=== PATIENT | female | born 1940 | race Caucasian/White ===

== ENCOUNTER 2017-07-31 09:32 | Emergency (ER) | payer MEDICARE, BC ==
[2017-07-31 09:56] VITALS: BP 140/65
--- NOTE | 2017-07-31 10:25 | RAD ---
INDICATION: Atraumatic right foot pain COMPARISON: None TECHNIQUE: AP, lateral, and oblique views were obtained. FINDINGS: There are no acute bony findings. There is minor osteoarthritic change of the midfoot. There is an arcuate configuration the tarsal navicular. There are heel spurs. The soft tissues are normal IMPRESSION: MIDFOOT OSTEOARTHRITIS. HEEL SPURS. NO ACUTE FINDINGS
--- NOTE | 2017-08-08 15:20 | UC ---
Fátima Lugo Thomas, scribed for Pamella Rae DO on 07/31/17 at 1014 . Lower Extremity/Ankle HPI - HPI Summary HPI Summary: The patient is a 76 year old female complaining of right foot pain that began four days ago and has progressively worsened. She describes the pain as throbbing. She denies radiation of pain or calf pain. The pain is worsened with touch and weight bearing. There is no known injury. The pain is rated 7/10. The patient reports some swelling in the area of pain. She denies any fever, sweats , chills, nausea, shortness of breath, chest pain, numbness, weakness, tingling , or any other symptoms. - History of Current Complaint Chief Complaint: UCLowerExtremity Stated Complaint: FOOT PAIN Time Seen by Provider: 07/31/17 10:05 Hx Obtained From: Patient Onset/Duration: Lasting Days - 4, Still Present Severity Currently: Moderate Pain Intensity: 7 Pain Scale Used: 0-10 Numeric Aggravating Factor(s): Standing, Ambulation Alleviating Factor(s): Nothing - Allergies/Home Medications Allergies/Adverse Reactions: Allergies Allergy/AdvReac Type Severity Reaction Status Date / Time benzalkonium chloride Allergy Intermediate BLURRED Verified 07/31/17 09:59 [From Travatan (with benzalkonium)] brimonidine Allergy Intermediate Rash Verified 07/31/17 09:59 travoprost Allergy Intermediate BLURRED Verified 07/31/17 09:59 [From Travatan (with benzalkonium)] ENVIRONMENTAL ALLERGIES Allergy SINUS Uncoded 07/31/17 09:59 PROBLEMS - NONE IN A WHILE PMH/Surg Hx/FS Hx/Imm Hx Cardiovascular History: Hypertension Respiratory History: Asthma - Surgical History Surgical History: Yes Surgery Procedure, Year, and Place: 1994 APPENDECTOMY, [facility]. 1959 SURGERY FOR SCALENUS ANTICUS COMPRESSION OF RIGHT VERTICAL ARTERY IN THE NECK, [facility] 1966 DILATION & CURETTAGE, [facility] [place]. 1991 SINUS SURGERY, [facility] [place]. 2003 LAPAROSCOPIC CHOLECYSTECTOMY, [facility] [place]. 2004 LAPAROSCOPIC CORA EN Y GASTRIC BYPASS, [facility] [place]. 2015 LASIK SURGERY, [facility] - Family History Known Family History: Positive: Diabetes, Other - Cataracts - Social History Alcohol Use: None Substance Use Type: None Smoking Status (MU): Never Smoked Tobacco Review of Systems Constitutional: Negative - fever Musculoskeletal: Other: - Foot pain, RLE swelling Is Patient Immunocompromised?: No All Other Systems Reviewed And Are Negative: Yes Physical Exam - Summary Physical Exam Summary: Appearance: Well-Appearing, No Pain Distress, Well-Nourished Eyes: conjunctiva clear, no discharge ENT: Hearing grossly normal, no muffled/hoarse voice. Neck: Normal, Supple Respiratory/Lung Sounds: Lungs clear, Normal breath sounds, No respiratory distress, No accessory muscle use Cardiovascular: RRR, No murmur Extremities: She has asymmetrical swelling in her lower extremities. Her right lower leg is swollen. Neurological: Alert, muscle tone normal Psychiatric:Normal, age appropriate behavior Skin: Normal, Warm, Dry, Normal color Triage Information Reviewed: Yes Vital Signs: Initial Vital Signs Temp 98.8 F 07/31/17 09:51 Pulse 82 07/31/17 09:51 Resp 18 07/31/17 09:51 BP 140/65 07/31/17 09:51 Pulse Ox 99 07/31/17 09:51 Vital Signs Reviewed: Yes Diagnostics - Radiology Foot XR Xray Interpretation: No Acute Changes - MIDFOOT OSTEOARTHRITIS. HEEL SPURS. NO ACUTE FINDINGS. Dr. Rae has reviewed this report. Radiology Interpretation Completed By: Radiologist Lower Extremity Course/Dx - Course Course Of Treatment: The patient is a 77 year old female presenting with right foot pain and right lower extremity swelling. The patient was discharged and instructed to immediately present to the emergency department for further workup. - Differential Dx/Diagnosis Provider Diagnoses: r/o dvt Discharge - Discharge Plan Condition: Stable Disposition: HOME Patient Education Materials: Deep Vein Thrombosis (ED), Leg Edema (ED) Referrals: Nazanin Davis MD [Primary Care Provider] - Additional Instructions: YOUR RIGHT LOWER LEG IS VERY SWOLLEN COMPARED TO THE LEFT. THIS MAKES US CONCERNED FOR A DEEP VEIN THROMBOSIS(DVT). SO WE ARE RECOMMENDING THAT YOU GO TO THE ED IMMEDIATELY FOR FURTHER EVALUATION. A DVT CAN COME LOOSE AND GET THROWN INTO YOUR LUNGS, BECOMING A PULMONARY EMBOLISM. THE RISKS ASSOCIATED WITH THIS CONDITION ARE RESPIRATORY DISTRESS, RESPIRATORY ARREST AND . The documentation as recorded by the Fátima paulino Thomas accurately reflects the service I personally performed and the decisions made by , Pamella Rae DO.
== END 2017-07-31 10:49 | disposition home or self-care (01) ==
LOC: UCEAST 09:32
DX: M79.671 Pain in right foot (principal); R22.41 Localized swelling, mass and lump, right lower limb; I10 Essential (primary) hypertension; J45.909 Unspecified asthma, uncomplicated; Z88.8 Allergy status to other drugs, medicaments and biological substances
CPT/HCPCS: 99211; G0463

== ENCOUNTER 2017-07-31 11:10 | Emergency (ER) | payer MEDICARE, BC ==
--- NOTE | 2017-07-31 11:23 | ED ---
Lower Extremity - HPI Summary HPI Summary: 77 female presents to ED with complaints of right foot pain and swelling for the past 4 days, sent of from [facility] to rule out DVT. Patient states she took a tylenol a few days ago however did not have any relief. No known trauma or injury. Had an xray at urgent care which showed osteoarthritis and bone spurs. No redness, bruising, or skin discoloration. No warmth or fever/chills. No other complaints. No significant PMHx. Was also wondering about gout. - History of Current Complaint Chief Complaint: EDExtremityLower Stated Complaint: RT LEG SWELLING-CC TRANSFER Time Seen by Provider: 07/31/17 11:21 Hx Obtained From: Patient Mechanism Of Injury: Unknown Onset of Pain: Days Onset/Duration: Days Severity Initially: Moderate Severity Currently: Moderate Pain Intensity: 7 Pain Scale Used: 0-10 Numeric Timing: Constant Location: Is Discrete @ - right medial foot Character Of Pain: Aching Associated Signs And Symptoms: Positive: Swelling Aggravating Factor(s): Standing, Ambulation, Other - touch Alleviating Factor(s): Rest, Nothing Able to Bear Weight: Yes Feet (Multiple View): 1 - pain - Risk Factors Gout Risk Factors: Age Over 40 - Allergies/Home Medications Allergies/Adverse Reactions: Allergies Allergy/AdvReac Type Severity Reaction Status Date / Time benzalkonium chloride Allergy Intermediate BLURRED Verified 07/31/17 09:59 [From Travatan (with benzalkonium)] brimonidine Allergy Intermediate Rash Verified 07/31/17 09:59 travoprost Allergy Intermediate BLURRED Verified 07/31/17 09:59 [From Travatan (with benzalkonium)] ENVIRONMENTAL ALLERGIES Allergy SINUS Uncoded 07/31/17 09:59 PROBLEMS - NONE IN A WHILE PMH/Surg Hx/FS Hx/Imm Hx Endocrine/Hematology History: Denies: Hx Diabetes, Hx Thyroid Disease Cardiovascular History: Reports: Hx Hypertension - HX OF NO MEDS Respiratory History: Reports: Hx Asthma - NO PROBLEMS NOW, NO INHALERS SINCE 1994, Hx Sleep Apnea - NO MACHINES Denies: Hx Chronic Obstructive Pulmonary Disease (COPD) GI History: Denies: Hx Ulcer Musculoskeletal History: Reports: Hx Arthritis - OSTEOARTHRITIS, KNEES, HIPS Sensory History: Reports: Hx Cataracts - BILATERAL, Hx Contacts or Glasses - GLASSES, Hx Glaucoma - BILATERAL, Hx Hearing Aid - BILATERAL Opthamlomology History: Reports: Hx Cataracts - BILATERAL, Hx Contacts or Glasses - GLASSES, Hx Glaucoma - BILATERAL Neurological History: Reports: Other Neuro Impairments/Disorders - 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 1959 SURGERY FOR SCALENUS ANTICUS COMPRESSION OF RIGHT VERTICAL ARTERY IN THE NECK, [facility]. 1966 DILATION & CURETTAGE, [facility] [place]. 1991 SINUS SURGERY, [facility] [place]. 2002 LAPAROSCOPIC CHOLECYSTECTOMY, [facility] [place]. 2003 LAPAROSCOPIC CORA EN Y GASTRIC BYPASS, [facility] [place]. 2015 LASIK SURGERY, [facility] Hx Anesthesia Reactions: No - Immunization History Immunizations Up to Date: Yes Infectious Disease History: No Infectious Disease History: Denies: Hx Human Immunodeficiency Virus (HIV), Traveled Outside the [place] in Last 30 Days - Family History Known Family History: Positive: None - Social History Alcohol Use: None Substance Use Type: Reports: None Smoking Status (MU): Never Smoked Tobacco Review of Systems Constitutional: Negative Cardiovascular: Negative Respiratory: Negative Positive: Arthralgia, Myalgia, Edema - right foot/lower leg Skin: Negative All Other Systems Reviewed And Are Negative: Yes Physical Exam Triage Information Reviewed: Yes Vital Signs On Initial Exam: Initial Vitals Temp Pulse Resp BP Pulse Ox 98.3 F 71 14 171/76 98 07/31/17 11:12 07/31/17 11:12 07/31/17 11:12 07/31/17 11:12 07/31/17 11:12 Vital Signs Reviewed: Yes Appearance: Positive: Well-Appearing, Well-Nourished, Pain Distress - mderate with touch or weight bearing on right foot Skin: Positive: Warm, Skin Color Reflects Adequate Perfusion, Dry. Negative: Cold, Numb, Cyanosis @, Pale, Erythema @ - very minimal if any on medial right foot however, patient has been holding it, not warm and no cellulitic like Neck: Positive: Supple Respiratory/Lung Sounds: Positive: Clear to Auscultation, Breath Sounds Present. Negative: Rales, Rhonchi, Wheezes Cardiovascular: Positive: Normal, RRR, Pulses are Symmetrical in both Upper and Lower Extremities - 1+ pedal bilateral, Leg Edema Right - lower ankle/foot, non pitting. Negative: Murmur, Rub Musculoskeletal: Positive: Normal, Strength/ROM Intact, Pain @ - TTP medial right foot with some edema, non pitting, Edema Right - non pitting lower leg right ankle/foot, Other - no crepitus step off or obvious deformity/trauma. Negative: Limited @, Interruption @, Abnormal @ Neurological: Positive: Normal, Sensory/Motor Intact, Alert, Oriented to Person Place, Time, NV Bundle Intact Distally, Normal Gait - favoring left side due to pain Diagnostics - Vital Signs Vital Signs Temp Pulse Resp BP Pulse Ox 07/31/17 11:12 98.3 F 71 14 171/76 98 - Laboratory Lab Statement: Any lab studies that have been ordered have been reviewed, and results considered in the medical decision making process. Re-Evaluation - Re-Evaluation First Eval Re-Evaluation Time: 12:35 Change: Unchanged - updated on results wanted to take aleve at home Lower Extremity Course/Dx - Course Course Of Treatment: xray obtained at [facility] prior to arrival and no abnormalities other than bone spur and osteoarthritis. US obtained and negative for DVT did show tabor's cyst. Due to physical exam findings/complaints possible arthritis flar, GOUT, or bone spur pain. Recommended orthotic shoes and Aleve for the next 5-7 days with food and RICE. Aware of worsening signs and symptoms to return for. Normal vitals and PE besides TTP on medial foot. No other complaints or concerns. Follow up with PCP for recheck. wanted to take aleve at home, therefore none given in ED, however instructed on use. - Diagnoses Differential Diagnosis/HQI/PQRI: Positive: Arthritis, Contusion, Gout, Infection , Sprain, Strain, Tendonitis, Other - bone spur Provider Diagnoses: Foot pain, right, Foot swelling, Osteoarthritis Discharge - Discharge Plan Condition: Stable Disposition: HOME Patient Education Materials: Osteoarthritis (ED), Gout (ED), Arthralgia (ED) Referrals: Nazanin Davis MD [Primary Care Provider] - Additional Instructions: Rest, ice and elevate. Take aleve as discussed (2 pills at first then one pill every 12 hours with food for the first 3 days, then one a day until symptoms improve). Recommend orthotic footwear. Follow up with PCP for re-check. Any new or worsening symptoms such as color change, fever, increased pain, chest pain, increased swelling, please return to ED or seek medical attention promptly.
--- NOTE | 2017-07-31 12:11 | RAD ---
INDICATION: Pain and swelling. COMPARISON: None TECHNIQUE: Duplex interrogation of the Lowerextremity was performed. FINDINGS: Deep veins: The common femoral, great saphenous, profunda femoris, proximal, mid, and distal deep femoral, popliteal, posterior tibial, and peroneal veins are patent. There is normal compressibility, augmentation, and phasic flow. Superficial veins: There are no findings of superficial thrombophlebitis. Popliteal fossa:There is a 7.2 x 3.4 x 2.2 cm popliteal cyst. Soft tissues:There are no soft tissue abnormalities. IMPRESSION: POPLITEAL CYST. NO EVIDENCE OF DEEP VENOUS THROMBOSIS
[2017-07-31 13:10] VITALS: BP 00/00
== END 2017-07-31 13:02 | disposition home or self-care (01) ==
LOC: ED 11:10
DX: M79.671 Pain in right foot (principal); M79.89 Other specified soft tissue disorders; M19.90 Unspecified osteoarthritis, unspecified site
CPT/HCPCS: 99283

== ENCOUNTER 2018-08-11 16:35 | Emergency (ER) | payer MEDICARE, BC ==
[2018-08-11 17:06] VITALS: BP 184/85
--- NOTE | 2018-08-11 17:57 | UC ---
General HPI - HPI Summary HPI Summary: Pleasant 78 yo lady presents with , c/o R arm / wrist / hand pain s/p fall earlier today. Mistook step on short step ladder, and fell down onto hard metal object. No loc. No neck pain. No sob / cp / abd pain. No B/b issues reported. No head pain, vis / aud issues. No shoulder, back, hip pain. No abd pain. - History of Current Complaint Chief Complaint: UCUpperExtremity Stated Complaint: ARM INJURY FROM A FALL Time Seen by Provider: 08/11/18 17:56 Hx Obtained From: Patient, Family/Docket Specialist Pain Intensity: 8 - Allergy/Home Medications Allergies/Adverse Reactions: Allergies Allergy/AdvReac Type Severity Reaction Status Date / Time benzalkonium chloride Allergy Intermediate BLURRED Verified 08/11/18 16:58 [From Travatan (with benzalkonium)] brimonidine Allergy Intermediate Rash Verified 08/11/18 16:58 travoprost Allergy Intermediate BLURRED Verified 08/11/18 16:58 [From Travatan (with benzalkonium)] ENVIRONMENTAL ALLERGIES Allergy SINUS Uncoded 08/11/18 16:58 PROBLEMS - NONE IN A WHILE Home Medications: Home Medications Calcium Carbonate/Vitamin D3 [Calcium 600 + Vit D Tablet] 1 each PO DAILY [History Confirmed 08/11/18] PMH/Surg Hx/FS Hx/Imm Hx Previously Healthy: No - see pmh.+ osteoporosis - Surgical History Surgical History: Yes Surgery Procedure, Year, and Place: 1994 APPENDECTOMY, [facility] [place]. 1959 SURGERY FOR SCALENUS ANTICUS COMPRESSION OF RIGHT VERTICAL ARTERY IN THE NECK, [facility]. [place] [facility] [place] [facility] [place] 2003 LAPAROSCOPIC CHOLECYSTECTOMY, [facility] [place]. 2004 LAPAROSCOPIC CORA EN Y GASTRIC BYPASS[place] [facility] [place] LASIK SURGERY, [facility]. Cataract and occular implant - Family History Known Family History: Positive: None - Social History Alcohol Use: None Substance Use Type: None Smoking Status (MU): Never Smoked Tobacco Review of Systems All Other Systems Reviewed And Are Negative: Yes Constitutional: Positive: Other - see hpi Skin: Positive: Other Eyes: Positive: Other ENT: Positive: Other - see hpi Respiratory: Positive: Other - see hpi Cardiovascular: Positive: Other - see hpi Gastrointestinal: Positive: Other - see hpi Genitourinary: Positive: Other - see hpi Motor: Positive: Other - see hpi Neurovascular: Positive: Other - see hpi Musculoskeletal: Positive: Other: - see hpi Neurological: Positive: Other - see hpi Psychological: Positive: Negative, Other - see hpi Is Patient Immunocompromised?: No Physical Exam Triage Information Reviewed: Yes Appearance: Well-Nourished Vital Signs: Initial Vital Signs Temp 99.6 F 08/11/18 16:56 Pulse 75 08/11/18 16:56 Resp 18 08/11/18 16:56 BP 184/85 08/11/18 16:56 Pulse Ox 100 08/11/18 16:56 Vital Signs Reviewed: Yes Eye Exam: Normal - grossly nad ENT Exam: Normal Neck: Positive: Nontender Respiratory Exam: Normal Respiratory: Positive: Chest non-tender, Lungs clear, Normal breath sounds, No respiratory distress Cardiovascular Exam: Normal Cardiovascular: Positive: RRR, Brisk Capillary Refill Abdominal Exam: Normal Abdomen Description: Positive: Nontender Musculoskeletal Exam: Other - Right elbow nontender, except over Radial nerve region -> pain in R hand. Shoulder nontender. Neck nontender. Fingers nontender. Distal cp < 2 sec x 5 fingers RH, and able to move fingers. Distal LT sens present. Tender to light pressure and swelling distal radial and ulnar region. Also tender metacarpals #2-4. Neurological Exam: Normal - grossly nonfocal Psychological Exam: Normal - conversing easily and appropriately Skin Exam: Other - + eccymosis forearm R and wrist Course/Dx - Course Course Of Treatment: Declines analgesia. Splint for comfort to go to xray. Reviewed xrays. Final report n/a. + distal radial fx. Suspect carpal fx as well, but details unclear. Reviewed coa / tx plan / f/u Will take pain medication. Hx gastric bypass as such no nsaid. Usual narc talk, no issues reported. Questions as posed answered to the best of my ability. - Diagnoses Provider Diagnosis: Distal radius fracture, right Discharge - Sign-Out/Discharge Documenting (check all that apply): Patient Departure All imaging exams completed and their final reports reviewed: No - Discharge Plan Condition: Stable Disposition: HOME Prescriptions: HYDROcodone/ACETAMIN 5-325 MG* [[place] 5-325 TAB*] 1 tab PO Q6H PRN #16 tab MDD 4 PRN Reason: Pain Patient Education Materials: Wrist Fracture in Adults (ED), Osteoporosis (ED) Referrals: Nazanin Davis MD [Primary Care Provider] - Krunal Gomez MD [Medical Doctor] - Additional Instructions: ELEVATE your hand as much as possible. Please go to the EMERGENCY DEPARTMENT for any new or worse problems. Xray report will be available tomorrow. Follow up with ORTHOPEDICS (recommend HAND SPECIALIST) early this week, Tuesday or Tuesday. Splint - keep on at all times UNLESS you have worse or new pain. - Billing Disposition and Condition Condition: STABLE Disposition: Home
[2018-08-11] MEDS ORDERED: HYDROcodone/ACETAMIN 5-325 MG* 1 TAB PO ONE (19:23)
--- NOTE | 2018-08-13 | UC ---
- Progress Note Progress Note: RADIOLOGY REPORTS REVIEWED. AGREE WITH POSSIBLE DISTAL RADIAL FX. FOLLOW-UP WITH ORTHO ADVISED. NO CHANGE. RIGHT THUMB XRAYS 1. No fracture or traumatic malalignment. 2. Moderate first carpometacarpal osteoarthropathy. RIGHT FOREARM XRAYS 1. Concern for a distal radial metaphyseal fracture based on the dedicated wrist radiograph (dictated separately). If clinically equivalent, repeat radiograph could be obtained in 7-10 days. 2. Osteopenia. RIGHT HAND XRAYS 1. No fracture or traumatic malalignment of the hand. 2. Severe first carpometacarpal osteoarthropathy. 3. Osteopenia. Course/Dx - Diagnoses Provider Diagnoses: Distal radius fracture, right Discharge - Sign-Out/Discharge Documenting (check all that apply): Post-Discharge Follow Up All imaging exams completed and their final reports reviewed: Yes - Discharge Plan Condition: Stable Disposition: HOME Prescriptions: HYDROcodone/ACETAMIN 5-325 MG* [[place] 5-325 TAB*] 1 tab PO Q6H PRN #16 tab MDD 4 PRN Reason: Pain Patient Education Materials: Wrist Fracture in Adults (ED), Osteoporosis (ED) Referrals: Krunal Gomez MD [Medical Doctor] - Nazanin Davis MD [Primary Care Provider] - Additional Instructions: ELEVATE your hand as much as possible. Please go to the EMERGENCY DEPARTMENT for any new or worse problems. Xray report will be available tomorrow. Follow up with ORTHOPEDICS (recommend HAND SPECIALIST) early this week, Tuesday or Tuesday. Splint - keep on at all times UNLESS you have worse or new pain. - Billing Disposition and Condition Condition: STABLE Disposition: Home
== END 2018-08-11 19:35 | disposition home or self-care (01) ==
LOC: UCEAST 16:35
DX: S52.501A Unspecified fracture of the lower end of right radius, initial encounter for closed fracture (principal); M81.0 Age-related osteoporosis without current pathological fracture; W11.XXXA Fall on and from ladder, initial encounter; Y92.9 Unspecified place or not applicable; Z91.09 Other allergy status, other than to drugs and biological substances; Z88.8 Allergy status to other drugs, medicaments and biological substances
CPT/HCPCS: 99213; G0463